=== PATIENT | male | born 1970 | race African-American/Black ===

== ENCOUNTER 2017-08-10 13:49 | Emergency (ER) | payer BC ==
[~2017-08-10] VITALS: Ht 182.9 cm; Wt 94.6 kg
[~2017-08-10 13:49] MED LIST: BACLOFEN10 MG PO; FLEXERIL10 MG PO; FLEXERIL5 MG PO; LIDODERM 5% P1 PATCH TD; LISINOPRIL10 MG PO; LISINOPRIL20 MG PO; LORTAB 5-325 M1 EACH PO; MOTRIN800 MG PO; NAPROSYN500 MG PO; NORCO 10/3251 TABLET PO; NORCO 5/3251 TABLET PO; PERCOCET 5/31 TABLET PO; PREVACID15 MG PO; PREVACID30 MG PO; VALIUM5 MG PO
[2017-08-10] MEDS ORDERED: PREDNISONE50 MG PO (15:58)
[2017-08-10] MEDS ORDERED: FLEXERIL5 MG PO (15:58)
[2017-08-10] MEDS ORDERED: TRAMADOL HCL50 MG PO (15:58)
[2017-08-10 16:20] VITALS: BP 129/87
== END 2017-08-10 16:20 | disposition home or self-care (01) ==
LOC: EME 13:49
DX: M54.16 Radiculopathy, lumbar region (principal); M54.5 Low back pain
CPT/HCPCS: 99281; 99284